=== PATIENT | male | born 1940 | race Caucasian/White ===

== ENCOUNTER 2017-03-31 16:13 | Emergency (ER) | payer OTHER ==
[2017-03-31] MEDS ORDERED: NS 1,000 ML IV ONE (16:20)
[2017-03-31 16:27] LABS: PLATELET COUNT 279 10^3/uL (150-400)
--- NOTE | 2017-03-31 16:32 | CPEKG ---
Heart Rate: 63 RR Interval: 952 P-R Interval: 244 QRSD Interval: 102 QT Interval: 436 QTC Interval: 447 P [place]: 7 QRS [place]: 55 T Wave [place]: -7 EKG Severity - ABNORMAL ECG - EKG Impression: SINUS RHYTHM EKG Impression: FIRST DEGREE AV BLOCK EKG Impression: BORDERLINE T ABNORMALITIES, INFERIOR LEADS Electronically Signed By: Ximena Zacarias 31-Mar-2017 19:46:20
--- NOTE | 2017-03-31 16:32 | EDPHY ---
H & P Time Seen by Provider: 03/31/17 16:19 HPI/ROS: CHIEF COMPLAINT: Syncope HISTORY OF PRESENT ILLNESS: The patient is a 76 y/o male with diabetes who presents after a syncopal episode. He had acute onset nausea and diarrhea this morning. Multiple episodes of watery diarrhea since then. At breakfast he had a blood sugar of 140 and ate toast. At lunch he became dizzy, pale and sweaty and then had a witnessed syncopal episode. He slumped over, but did not hit his head or otherwise hurt himself. He has associated chills and generalized weakness. He denies vomiting , fever, abdominal pain, or any other associated symptoms. REVIEW OF SYSTEMS: A 10 point review of systems was performed and is negative with the exception of the elements mentioned in the history of present illness. Past Medical/Surgical History: 1. Type 2 diabetes 2. Knee replacement 3. Sleep apnea Social History: at bedside, lives in [place], retired Smoking Status: Never smoked Physical Exam: General Appearance: Alert, pleasant, non-toxic Eyes: Pupils equal and round, no conjunctival pallor ENT, Mouth: Mucous membranes moist Neck: Normal inspection Respiratory: Lungs are clear to auscultation Cardiovascular: Regular rate and rhythm Gastrointestinal: Abdomen is soft and non-tender Neurological: A&O, CN II-XII intact, motor/sensory intact, gait not assessed initially Skin: approx 8 scabbed over papules in a linear fashion on the lower left chest wall, no vesicles or fluid, warm and dry; no rash on back Extremities: normal inspection Psychiatric: Mood and affect normal Constitutional: Initial Vital Signs Temperature (C) 36.3 C 03/31/17 16:19 Heart Rate 65 03/31/17 16:19 Respiratory Rate 18 03/31/17 16:19 Blood Pressure 100/58 L 03/31/17 16:19 O2 Sat (%) 93 03/31/17 16:19 O2 Delivery Mode Room Air O2 (L/minute) 2 Allergies/Adverse Reactions: No Known Allergies Allergy (Unverified 03/31/17 16:19) Home Medications: Medication Instructions Recorded Metformin HCl 03/31/17 Ondansetron Odt [Zofran Odt 4 mg 4 mg PO Q4 PRN #10 tab 03/31/17 (*)] Medical Decision Making - Diagnostics EKG Interpretation: EKG interpreted by me reveals first-degree AV block, rate 63, nonspecific T- wave change in lead III. ED Course/Re-evaluation: This patient presents with nausea, diarrhea, and syncope. Likely vasovagal episode. Normal vital signs, neuro/cardiac exam. stat EKG without ischemic changes or dysrhythmia. 1L fluids, labs, and Zofran. Initial O2 sat reviewed (high 80's); rechecked and O2 sat is normal. Likely incorrect reading initially , as pt has no c/o SOB or resp sx. 5:40 p.m.-feels better, nausea has resolved. Tolerating oral fluids well. Abdomen remains soft and nontender. Will attempt to ambulate. 6:40 p.m. -ambulate with a steady gait, no dizziness. Would like to go home. Plan for discharge with prescription for Zofran and instructions to continue clear liquids and introduce bland foods as tolerated. He agrees to this course of action. Differential Diagnosis: Differential diagnosis includes though is not limited to cardiac dysrhythmia, CVA, TIA, GI bleed, AAA, sepsis, hypoglycemia. - Data Points Laboratory Results: Laboratory Results 03/31/17 16:00 03/31/17 16:00 Medications Given: Discontinued Medications Sodium Chloride (Ns) 1,000 mls @ 0 mls/hr IV EDNOW ONE; Wide Open PRN Reason: Protocol Stop: 03/31/17 16:21 Last Admin: 03/31/17 16:33 Dose: 1,000 mls Ondansetron HCl (Zofran) 4 mg IVP EDNOW ONE Stop: 03/31/17 16:40 Last Admin: 03/31/17 16:41 Dose: 4 mg Departure - Departure Disposition: Home, Routine, Self-Care Clinical Impression: Diarrhea Qualifiers: Diarrhea type: infectious Qualified Code(s): A09 - Infectious gastroenteritis and colitis, unspecified Syncope Qualifiers: Syncope type: vasovagal syncope Qualified Code(s): R55 - Syncope and collapse Condition: Good Instructions: Syncope (ED), Acute Nausea and Vomiting (ED), Acute Diarrhea (ED) Additional Instructions: 1. Clear liquids for 24 hours. 2. Advance diet as tolerated. I suggest the BRAT diet to start: bananas, rice, applesauce and toast. 3. Take 1 Zofran tablet under your tongue as directed as needed for nausea 4. Return for worsening symptoms, persistent vomiting, abdominal pain, any concerns. Referrals: Tamiko Arce MD [[facility] [place] Primary Care Provider] - As per Instructions Prescriptions: Ondansetron Odt [Zofran Odt 4 mg (*)] 4 mg PO Q4 PRN #10 tab PRN Reason: Nausea Report Scribed for: Ximena Zacarias Report Scribed by: Amber Dominguez Date of Report: 03/31/17 Time of Report: 16:32 Physician Review and Approval Statement: 03/31/17 16:32 Portions of this note were transcribed by a medical laboratory technologist. I personally performed a history, physical exam, medical decision making, and confirmed accuracy of information the transcribed note.
[2017-03-31] MEDS ORDERED: ONDANSETRON 4 MG/2 ML VIAL IVP ONE (16:39)
[2017-03-31 17:40] VITALS: TEMP 97.7
[2017-03-31 17:58] VITALS: BP 139/71
[2017-03-31 18:02] VITALS: PULSE 74; RESP 13; O2SAT 96
== END 2017-03-31 18:51 | disposition home or self-care (01) ==
DX: R55 Syncope and collapse (principal); A09 Infectious gastroenteritis and colitis, unspecified; E86.9 Volume depletion, unspecified; E11.9 Type 2 diabetes mellitus without complications; Z79.84 Long term (current) use of oral hypoglycemic drugs
CPT/HCPCS: 93005; 96374; 99284; J2405